=== PATIENT | male | born 1980 | race Caucasian/White ===

== ENCOUNTER → 2017-11-29 | Outpatient (CLI) | payer MEDICAID | LOC: CIMAGING 12:29 | PROVIDERS: ATTEND Family Medicine | DX: J98.09 Other diseases of bronchus, not elsewhere classified (principal) | CPT/HCPCS: 71046-PO ==

== ENCOUNTER → 2018-09-15 | Outpatient (CLI) | payer MEDICAID | LOC: CIMAGING 08:56 | PROVIDERS: ATTEND Family Medicine | DX: R19.00 Intra-abdominal and pelvic swelling, mass and lump, unspecified site (principal) | CPT/HCPCS: 36415-PO; 76705-PO ==

== ENCOUNTER 2018-09-25 13:29 | Emergency (ER) | payer MEDICAID ==
[2018-09-25 13:59] VITALS: BP 152/106
== END 2018-09-25 15:27 | disposition left against medical advice (07) ==
DX: Z53.21 Procedure and treatment not carried out due to patient leaving prior to being seen by health care provider (principal)

== ENCOUNTER → 2018-09-25 | Outpatient (CLI) | payer MEDICAID ==
[~2018-09-25] MED LIST: IOPAMIDOL (ISOVUE 370) 100 ML BTL IV ONE
== END ==
LOC: CIMAGING 10:41
PROVIDERS: ATTEND Family Medicine
DX: R10.9 Unspecified abdominal pain (principal); N32.9 Bladder disorder, unspecified; G80.8 Other cerebral palsy; G40.409 Other generalized epilepsy and epileptic syndromes, not intractable, without status epilepticus; G93.0 Cerebral cysts; Z93.1 Gastrostomy status
CPT/HCPCS: 74177-PO; Q9967

== ENCOUNTER 2019-02-16 15:13 | Emergency (ER) | payer MEDICAID | END 2019-02-16 18:39 | disposition home or self-care (01) | LOC: CED 15:13 ==